=== PATIENT | female | born 1975 | race Two or more races ===

== ENCOUNTER 2018-11-08 00:49 | Emergency (ER) | payer MEDICAID ==
[~2018-11-08] VITALS: Ht 162.6 cm; Wt 81.6 kg
[2018-11-08 02:41] VITALS: BP 128/75
[2018-11-08] MEDS ORDERED: TETANUS-DIPTH-ACEL PERTUSSIS 0.5ML SYRG IM ONE (02:45)
[2018-11-08] MEDS ORDERED: cefTRIAXone SOD 1,000 MG VL IM ONE (02:45)
[2018-11-08] MEDS ORDERED: HYDROcodone-ACET 5/325MG TAB PO ONE (02:45)
== END 2018-11-08 03:12 | disposition home or self-care (01) ==
LOC: ER 00:51
DX: S91.115A Laceration without foreign body of left lesser toe(s) without damage to nail, initial encounter (principal); W22.8XXA Striking against or struck by other objects, initial encounter; Y93.89 Activity, other specified; Y99.8 Other external cause status; Y92.89 Other specified places as the place of occurrence of the external cause
CPT/HCPCS: 12002; 73630; 90471; 90715; 96372; 99283; J0696; L3260

== ENCOUNTER 2018-12-05 04:36 | Emergency (ER) | payer MEDICAID ==
[~2018-12-05] VITALS: Ht 160 cm; Wt 81.6 kg
[2018-12-05 04:44] VITALS: BP 131/73
[2018-12-05] MEDS ORDERED: KETOROLAC TROMETH 60MG/2ML VIAL IM ONE (07:30)
== END 2018-12-05 08:09 | disposition home or self-care (01) ==
LOC: ER 04:39
DX: S29.011A Strain of muscle and tendon of front wall of thorax, initial encounter (principal); R51 Headache; S91.311D Laceration without foreign body, right foot, subsequent encounter; Y04.2XXA Assault by strike against or bumped into by another person, initial encounter; Y93.39 Activity, other involving climbing, rappelling and jumping off; Y92.89 Other specified places as the place of occurrence of the external cause; Y99.8 Other external cause status
CPT/HCPCS: 70450; 71101; 96372; 99284; J1885

== ENCOUNTER 2021-08-18 23:37 | Emergency (ER) | payer MEDICAID ==
[~2021-08-18] VITALS: Ht 162.6 cm; Wt 95.3 kg
[2021-08-19] MEDS ORDERED: cefTRIAXone SOD 1,000 MG VL IM ONE (07:00)
[2021-08-19 07:27] VITALS: BP 101/58
[2021-08-19] MEDS ORDERED: KETO2CRE4 TOP (07:31)
[2021-08-19] MEDS ORDERED: CLIN300C8 PO (07:31)
== END 2021-08-19 07:37 | disposition home or self-care (01) ==
LOC: ER 23:37
DX: B35.4 Tinea corporis (principal); Z90.89 Acquired absence of other organs
CPT/HCPCS: 96372; 99283; J0696